=== PATIENT | male | born 1955 | race Caucasian/White ===

== ENCOUNTER 2019-10-24 08:01 | Outpatient (CLI) | payer MEDICAID ==
[2019-10-24] MEDS ORDERED: nitroGLYCERIN 0.4mg SUBLingual tab SL PRN (09:05)
[2019-10-24] MEDS ORDERED: regadenoson 0.4mg/5ml syringe IV ONE (09:05)
[2019-10-24] MEDS ORDERED: normal saline 500ml IV soln 500 ML IV ONE (09:05)
[2019-10-24] MEDS ORDERED: aminophylline 250mg/10ml inj. IV PRN (09:05)
[2019-10-24 09:51] VITALS: BP 140/71
[2019-10-24 09:53] VITALS: BP 138/79
[2019-10-24 09:54] VITALS: BP 124/72
[2019-10-24 09:55] VITALS: BP 134/70
[2019-10-24 09:56] VITALS: BP 121/68
[2019-10-24 09:57] VITALS: BP 113/68
== END 2019-10-24 23:59 | disposition home or self-care (01) ==
LOC: RAD 08:01
PROVIDERS: ATTEND Internal Medicine Cardiovascular Disease
DX: I35.0 Nonrheumatic aortic (valve) stenosis (principal); R07.9 Chest pain, unspecified
CPT/HCPCS: 78452; 93017; A9500; J2785; J7040